=== PATIENT | female | born 1960 | race African-American/Black ===

== ENCOUNTER → 2017-07-01 | Outpatient (CLI) | payer OTHER ==
--- NOTE | 2017-07-01 16:16 | REPMRS ---
Patient History The patient states she has not had a clinical breast exam in over a year. Patient is postmenopausal. Family history of breast cancer in maternal cousin at age 25. Digital Woman Screen Mammo: July 01, 2017 - Exam #: [id number] Bilateral CC and MLO view(s) were taken. Technologist: Kinsey Freire, Technologist Prior study comparison: April 06, 2016, digital woman screen mammo performed at [facility]. January 24, 2014, digital woman screen mammo performed at [facility]. FINDINGS: The breast tissue is heterogeneously dense. This may lower the sensitivity of mammography. There has been no change in the appearance of the mammogram from the prior studies. There is a moderate amount of residual fibroglandular tissue which is fairly symmetric. There is no interval development of dominant mass, areas of architectural distortion, or clustered microcalcification typical of malignancy. ASSESSMENT: BI-RADS/ACR category 1 mammogram. Negative. Recommendation Routine screening mammogram in 1 year (for women over age 40). This mammogram was interpreted with the aid of an FDA-approved computer-aided dectection system. Electronically Signed By: Jasson Crowell MD 07/01/17 1219
== END ==
LOC: M WHC 15:11
PROVIDERS: ATTEND Physician Assistant Medical
DX: Z12.31 Encounter for screening mammogram for malignant neoplasm of breast (principal)

== ENCOUNTER → 2017-09-23 | Outpatient (CLI) | payer OTHER | LOC: M LRY 19:02 | DX: R07.81 Pleurodynia (principal); M54.2 Cervicalgia; M51.34 Other intervertebral disc degeneration, thoracic region | CPT/HCPCS: G0463 ==

== ENCOUNTER → 2018-10-06 | Outpatient (CLI) | payer OTHER ==
[~2018-10-06] MED LIST: ISOVUE-370 76% 100ML VIAL (Q9967) As Ordered ONE
--- NOTE | 2018-10-07 14:11 | REP ---
Clinical: Chest pain/pressure. Technique: Axial contrast enhanced images from the thoracic inlet to the upper abdomen with coronal and sagittal re-formations using 100 ml Isovue 370 intravenous contrast material. Comparison: None. Findings: The bilateral lung schwarz are well-aerated, relatively symmetric and clear. No acute consolidation, significant nodule, or mass lesion. No significant chronic interstitial changes. No pleural effusion or pneumothorax. Tracheobronchial tree is patent. The no significant adenopathy. Mediastinum demonstrates normal thoracic aorta, pulmonary vasculature and heart/pericardium. Surrounding musculoskeletal structures are intact without focal osseous abnormality. Limited upper abdomen demonstrates fatty infiltration to the liver and normal bilateral adrenal glands. Impression: 1. No acute mediastinal or pleuroparenchymal process. 2. Hepatosteatosis Electronically Signed by Von Jackson MD 10/07/2018 02:03 P
== END ==
LOC: M RAD 11:17
PROVIDERS: ATTEND Family Medicine
DX: R07.9 Chest pain, unspecified (principal)
CPT/HCPCS: 71260; Q9967

== ENCOUNTER → 2018-10-11 | Outpatient (CLI) | payer OTHER ==
--- NOTE | 2018-10-12 08:58 | REPMRS ---
Patient History The patient states she has not had a clinical breast exam in over a year. Patient is postmenopausal. Family history of breast cancer at age 25 in maternal cousin. No Hormone Replacement Therapy Digital Woman Screen Mammo: October 11, 2018 - Exam #: [id number] Bilateral CC and MLO view(s) were taken. Technologist: Kinsey Freire, Technologist Prior study comparison: July 01, 2017, digital woman screen mammo performed at [facility]. April 06, 2016, digital woman screen mammo performed at [facility]. January 24, 2014, digital woman screen mammo performed at [facility] to [facility]. FINDINGS: The breast tissue is heterogeneously dense. This may lower the sensitivity of mammography. There is a moderate amount of heterogeneously dense fibroglandular tissue which is fairly symmetric. There is no interval development of dominant mass, architectural distortion, or clustered microcalcification typical of malignancy. There has been no change in the appearance of the mammogram from the prior studies. Assessment: BI-RADS/ACR category 1 mammogram. Negative Mammogram. Recommendation Routine screening mammogram of both breasts in 1 year (for women over age 40). This patient's Lifetime Breast Cancer RIsk is estimated at 11.0 %. This mammogram was interpreted with the aid of an FDA-approved computer-aided dectection system. Electronically Signed By: Giancarlo Remy MD 10/12/18 0858
== END ==
LOC: M WHC 15:57
PROVIDERS: ATTEND Family Medicine
DX: Z12.31 Encounter for screening mammogram for malignant neoplasm of breast (principal); Z78.0 Asymptomatic menopausal state

== ENCOUNTER → 2019-02-11 | Outpatient (REF) | payer OTHER | LOC: M SFHCLERA 13:05 | PROVIDERS: ATTEND Nurse Practitioner Family | DX: J02.9 Acute pharyngitis, unspecified (principal) ==

== ENCOUNTER → 2019-03-16 | Outpatient (CLI) | payer OTHER ==
--- NOTE | 2019-03-16 12:54 | REP ---
Left fingers, four views for puncture wound of middle finger: Four views of the middle, ring and fifth digit are performed. There is no fracture or dislocation. There is no radio-opaque foreign body. Mineralization joint spaces are normal. Impression: Negative left middle, ring and fifth digits. Electronically Signed by Jasson Vee MD 03/16/2019 12:45 P
== END ==
LOC: M WUC 12:10
PROVIDERS: ATTEND Physician Assistant
DX: S61.242A Puncture wound with foreign body of right middle finger without damage to nail, initial encounter (principal)

== ENCOUNTER → 2020-06-11 | Outpatient (CLI) | payer OTHER ==
--- NOTE | 2020-06-11 17:15 | REPMRS ---
Patient History The patient states she has not had a clinical breast exam in over a year. Patient is postmenopausal. Family history of breast cancer at age 25 in maternal cousin, breast cancer at age 57 in maternal cousin. No Hormone Replacement Therapy 3D TOMOSYNTHESIS WAS PERFORMED. [facility] Volpara breast density b. Digital Woman Screen Mammo: June 11, 2020 - Exam #: [id number] Bilateral CC and MLO view(s) were taken. Technologist: Kinsey Freire, Technologist Prior study comparison: October 11, 2018, bilateral digital woman screen mammo performed at [facility]. July 01, 2017, digital woman screen mammo performed at [facility]. FINDINGS: The breast tissue is heterogeneously dense. This may lower the sensitivity of mammography. There has been no change in the appearance of the mammogram from the prior studies. There is a moderate amount of residual fibroglandular tissue which is fairly symmetric. There is no interval development of dominant mass, areas of architectural distortion, or clustered microcalcification typical of malignancy. Assessment: BI-RADS/ACR category 1 mammogram. Negative Mammogram. Recommendation Routine screening mammogram in 1 year (for women over age 40). This mammogram was interpreted with the aid of an FDA-approved computer-aided dectection system. Electronically Signed By: Jasson Crowell MD 06/11/20 8026
== END ==
LOC: M WHC 12:40
PROVIDERS: ATTEND Family Medicine
DX: Z12.31 Encounter for screening mammogram for malignant neoplasm of breast (principal)

== ENCOUNTER → 2022-09-07 | Outpatient (CLI) | payer OTHER | LOC: M WHC 15:57 | PROVIDERS: ATTEND Family Medicine | DX: Z12.31 Encounter for screening mammogram for malignant neoplasm of breast (principal) ==

== ENCOUNTER → 2024-06-29 | Outpatient (CLI) | payer OTHER | LOC: M WHC 15:32 | PROVIDERS: ATTEND Internal Medicine | DX: Z12.31 Encounter for screening mammogram for malignant neoplasm of breast (principal) ==

== ENCOUNTER → 2024-07-18 | Outpatient (CLI) | payer OTHER | LOC: M PLAIMG 12:28 | PROVIDERS: ATTEND Internal Medicine | DX: R01.1 Cardiac murmur, unspecified (principal) ==

== ENCOUNTER → 2025-02-27 | Outpatient (CLI) | payer OTHER ==
[~2025-02-27] MED LIST changes: +GADOXETATE DISODIUM 2.5 MMOL/10 ML VIAL As Ordered ONE; -ISOVUE-370 76% 100ML VIAL (Q9967) As Ordered ONE
== END ==
LOC: M RAD 10:39
PROVIDERS: ATTEND Internal Medicine
DX: K76.9 Liver disease, unspecified (principal)

== ENCOUNTER → 2025-04-10 | Outpatient (CLI) | payer OTHER | LOC: M WHC 09:32 | PROVIDERS: ATTEND Internal Medicine | DX: M85.89 Other specified disorders of bone density and structure, multiple sites (principal); Z91.89 Other specified personal risk factors, not elsewhere classified ==